=== PATIENT | female | born 1960 | race Caucasian/White ===

== ENCOUNTER 2020-06-29 21:31 | Inpatient (IN) | payer BC ==
[~2020-06-29] VITALS: Ht 162.6 cm; Wt 75.7 kg
[2020-06-29 21:00] VITALS: BP 132/82
[2020-06-29] MEDS ORDERED: CETI-89 PO (23:13)
[2020-06-29] MEDS ORDERED: FLUT9.9S BOTHNSTRLS (23:13)
[2020-06-29] MEDS ORDERED: TC1U15 TOP (23:13)
[2020-06-29] MEDS ORDERED: ALBU90AE INH (23:13)
[2020-06-29] MEDS ORDERED: ZOLP10TA2 PO (23:13)
[2020-06-29] MEDS ORDERED: PRED10TA PO (23:13)
[2020-06-29] MEDS ORDERED: MOME13HF2 INH (23:13)
[2020-06-29] MEDS ORDERED: PSEU120T56 PO (23:13)
[2020-06-29] MEDS ORDERED: LORAZEPAM 2MG/ML CPJ IV PRN (23:45)
[2020-06-29] MEDS ORDERED: HYDROCODONE/ACETAMINOPHEN 5/325MG TABLET PO PRN (23:45)
[2020-06-29] MEDS ORDERED: CLONIDINE 0.1MG TABLET PO PRN (23:45)
[2020-06-29] MEDS ORDERED: ONDANSETRON HCL 4MG/2ML INJ IV PRN (23:45)
[2020-06-29] MEDS ORDERED: DOCUSATE SODIUM 100MG CAPSULE PO PRN (23:45)
[2020-06-29] MEDS ORDERED: MORPHINE SULFATE 2 MG/ML CPJ (NOT FOR IM USE) IV PRN (23:45)
[2020-06-29] MEDS ORDERED: ACETAMINOPHEN 325MG TABLET PO PRN (23:45)
[2020-06-29] MEDS ORDERED: DIPHENHYDRAMINE 50MG/ML VIAL IV PRN (23:45)
[2020-06-29] MEDS ORDERED: HYDRALAZINE 20MG/ML VIAL IV PRN (23:45)
[2020-06-29] MEDS ORDERED: MAGNESIUM/ALUMINUM HYDROXIDE/SIMETHICONE 30ML UDC PO PRN (23:45)
[2020-06-29] MEDS ORDERED: IPRATROPIUM/ALBUTEROL 0.5-3(2.5)MG/3ML NEB HHN PRN (23:45)
[2020-06-29] MEDS ORDERED: GUAIFENESIN 200MG/10ML SUGAR FREE UDC PO PRN (23:45)
[2020-06-30] VITALS: BP 142/61
[2020-06-30] MEDS: ZOLPIDEM TARTRATE 5MG TABLET PO PRN ×2 (01:17→23:28)
[2020-06-30 04:00] VITALS: BP 147/91
[2020-06-30 05:42] LABS: CHLORIDE 103 mEq/L (98-107)
[2020-06-30] MEDS: SODIUM CHLORIDE 0.9% INJ 3ML FLUSH IVF SCH ×3 (06:00→23:28)
[2020-06-30 06:54] LABS: BASOPHILS % 0.5 % (0.0-2.0); EOSINOPHILS % 4.2 % (0.0-5.0); HEMATOCRIT. 37.9 % (36.0-48.0); HEMOGLOBIN. 12.4 g/dL (12.0-16.0); LYMPHOCYTES % 13.3 % (20.0-50.0); MEAN CORPUSCULAR HEMOGLOBIN 31.2 pg (28.0-32.0); MEAN CORPUSCULAR VOLUME 95.3 fL (81.0-99.0); MEAN PLATELET VOLUME 8.1 fl (7.4-10.4); MONOCYTES % 11.7 % (2.0-8.0); NEUTROPHILS % 70.3 % (40.0-76.0); PLATELET 365 x1000/uL (130-400); RED BLOOD CELL COUNT 3.98 mill/uL (4.2-5.4); RED CELL DISTRIBUTION WIDTH 14.8 % (11.6-14.6)
[2020-06-30 08:00] VITALS: BP 118/75
[2020-06-30] MEDS: DEXT 5%/0.45% NACL 1000ML 1,000 ML IV SCH (11:30)
[2020-06-30 12:00] VITALS: BP 146/85
[2020-06-30] MEDS: ENOXAPARIN 40MG/0.4ML SYR SUBCUT SCH (12:27)
[2020-06-30 16:00] VITALS: BP 138/88
[2020-06-30 20:00] VITALS: BP 144/69
[2020-07-01] VITALS: BP 142/77
[2020-07-01 04:00] VITALS: BP 142/65
[2020-07-01] MEDS: SODIUM CHLORIDE 0.9% INJ 3ML FLUSH IVF SCH ×3 (06:02→21:37)
[2020-07-01] MEDS: DEXT 5%/0.45% NACL 1000ML 1,000 ML IV SCH (06:31)
[2020-07-01 08:00] VITALS: BP 125/74
[2020-07-01 12:00] VITALS: BP 134/87
[2020-07-01] MEDS: ENOXAPARIN 40MG/0.4ML SYR SUBCUT SCH (12:00)
[2020-07-01 16:53] VITALS: BP 146/89
[2020-07-01 20:00] VITALS: BP 132/71
[2020-07-01] MEDS: ZOLPIDEM TARTRATE 5MG TABLET PO PRN (22:48)
[2020-07-02] VITALS: BP 112/78
[2020-07-02] MEDS: DEXT 5%/0.45% NACL 1000ML 1,000 ML IV SCH (02:37)
[2020-07-02 04:00] VITALS: BP 134/70
[2020-07-02] MEDS: SODIUM CHLORIDE 0.9% INJ 3ML FLUSH IVF SCH ×2 (05:30→13:27)
[2020-07-02 07:14] LABS: CHLORIDE 102 mEq/L (98-107)
[2020-07-02 07:19] LABS: BASOPHILS % 0.7 % (0.0-2.0); EOSINOPHILS % 3.8 % (0.0-5.0); HEMATOCRIT. 37.7 % (36.0-48.0); HEMOGLOBIN. 12.5 g/dL (12.0-16.0); LYMPHOCYTES % 10.6 % (20.0-50.0); MEAN CORPUSCULAR HEMOGLOBIN 31.7 pg (28.0-32.0); MEAN CORPUSCULAR VOLUME 95.4 fL (81.0-99.0); MEAN PLATELET VOLUME 8.2 fl (7.4-10.4); MONOCYTES % 11.5 % (2.0-8.0); NEUTROPHILS % 73.4 % (40.0-76.0); PLATELET 360 x1000/uL (130-400); RED BLOOD CELL COUNT 3.95 mill/uL (4.2-5.4); RED CELL DISTRIBUTION WIDTH 15.1 % (11.6-14.6)
[2020-07-02 08:00] VITALS: BP 175/76
[2020-07-02 12:00] VITALS: BP 143/74
[2020-07-02] MEDS: ENOXAPARIN 40MG/0.4ML SYR SUBCUT SCH (13:27)
[2020-07-02 16:00] VITALS: BP 113/54
[2020-07-02] MEDS ORDERED: LIDOCAINE HCL 1% 10 MG/ML 10ML VIAL INJ NR (17:00)
[2020-07-02 19:10] VITALS: BP 115/56
== END 2020-07-02 19:39 | disposition home or self-care (01) | DRG 199 ==
LOC: 5WST 21:31
PROVIDERS: ADMIT Internal Medicine; ATTEND Internal Medicine
DX: J93.9 Pneumothorax, unspecified (principal); J96.00 Acute respiratory failure, unspecified whether with hypoxia or hypercapnia; E46 Unspecified protein-calorie malnutrition; R65.10 Systemic inflammatory response syndrome (SIRS) of non-infectious origin without acute organ dysfunction; J45.909 Unspecified asthma, uncomplicated; K44.9 Diaphragmatic hernia without obstruction or gangrene; K29.70 Gastritis, unspecified, without bleeding; Z79.51 Long term (current) use of inhaled steroids; Z79.899 Other long term (current) drug therapy; Z68.28 Body mass index [BMI] 28.0-28.9, adult
CPT/HCPCS: 36415; 71045; 80048; 80053; 85025; C1893; J1650; J3490